=== PATIENT | male | born 1985 | race American Indian/Alaskan Native ===

== ENCOUNTER 2016-09-26 17:26 | Emergency (ER) | payer SELFPAY | END 2016-09-26 18:30 | disposition left against medical advice (07) | LOC: ED 17:26 | DX: Z53.21 Procedure and treatment not carried out due to patient leaving prior to being seen by health care provider (principal) ==

== ENCOUNTER 2016-10-28 09:22 | Emergency (ER) | payer OTHER ==
[2016-10-28 10:11] VITALS: BP 112/62
--- NOTE | 2016-10-28 11:37 | Emergency Department Report ---
- General Chief complaint: Skin Rash Stated complaint: RASH/POSS INSECT BITE SPREADING Time Seen by Provider: 10/28/16 11:07 Source: patient Mode of arrival: Ambulatory Limitations: No Limitations - History of Present Illness Initial comments: This is a 31-year-old male nontoxic, well nourished in appearance, no acute signs of distress the patient's ED complaining of welts and skin rash 2 weeks. Associated symptoms include itching, tender to touch, redness, and warmth to touch. Extremities affected is his right upper extremity and chest area. Patient denies any contact of poison gonzalo or the other. Patient denies any pus, drainage, induration, fever, chills, headache, nausea, vomiting, chest pain or short of breath. Denies any allergies or past medical history. MD complaint: rash -: Gradual, week(s) (3) Tetanus Up to Date: yes Location: generalized, chest, RUE Severity: mild Severity scale (0 -10): 6 Quality: aching, other (itching) Consistency: constant Improves with: none Worsens with: none Context: none Associated symptoms: denies other symptoms Treatments Prior to Arrival: none - Related Data Previous Rx's Medication Instructions Recorded Last Taken Type Hyoscyamine Sulfate [Hyoscyamine 0.125 mg PO Q4H PRN #10 tablet 04/22/14 Unknown Rx 0.125 MG] Acyclovir [Zovirax Tab] 400 mg PO Q8H #21 tab 05/31/14 Unknown Rx Meclizine [Antivert] 25 mg PO TID PRN #14 tablet 05/31/14 Unknown Rx Sulfamethoxazole/Trimethoprim 1 each PO BID #14 tablet 10/28/16 Unknown Rx [Bactrim DS TAB] predniSONE [Deltasone] 20 mg PO BID #10 tab 10/28/16 Unknown Rx Allergies Allergy/AdvReac Type Severity Reaction Status Date / Time No Known Allergies Allergy Unverified 11/20/13 20:17 Abscess Boil HPI - HPI Chief Complaint: Skin Rash Stated Complaint: RASH/POSS INSECT BITE SPREADING Time Seen by Provider: 10/28/16 11:07 Home Medications: Previous Rx's Medication Instructions Recorded Last Taken Type Hyoscyamine Sulfate [Hyoscyamine 0.125 mg PO Q4H PRN #10 tablet 04/22/14 Unknown Rx 0.125 MG] Acyclovir [Zovirax Tab] 400 mg PO Q8H #21 tab 05/31/14 Unknown Rx Meclizine [Antivert] 25 mg PO TID PRN #14 tablet 05/31/14 Unknown Rx Sulfamethoxazole/Trimethoprim 1 each PO BID #14 tablet 10/28/16 Unknown Rx [Bactrim DS TAB] predniSONE [Deltasone] 20 mg PO BID #10 tab 10/28/16 Unknown Rx Allergies/Adverse Reactions: Allergies Allergy/AdvReac Type Severity Reaction Status Date / Time No Known Allergies Allergy Unverified 11/20/13 20:17 ED Review of Systems ROS: Stated complaint: RASH/POSS INSECT BITE SPREADING Other details as noted in HPI Constitutional: denies: chills, fever Eyes: denies: eye pain, eye discharge, vision change ENT: denies: ear pain, throat pain Respiratory: denies: cough, shortness of breath, wheezing Cardiovascular: denies: chest pain, palpitations Endocrine: no symptoms reported Gastrointestinal: denies: abdominal pain, nausea, diarrhea Genitourinary: denies: urgency, dysuria Musculoskeletal: denies: back pain, joint swelling, arthralgia Skin: denies: rash, lesions Neurological: denies: headache, weakness, paresthesias Psychiatric: denies: anxiety, depression Hematological/Lymphatic: denies: easy bleeding, easy bruising ED Past Medical Hx - Past Medical History Previous Medical History?: Yes Hx Psychiatric Treatment: Yes (anger issues) - Surgical History Past Surgical History?: No - Social History Smoking Status: Current Every Day Smoker Substance Use Type: Alcohol, Marijuana - Medications Home Medications: Home Medications Medication Instructions Recorded Confirmed Last Taken Type Hyoscyamine Sulfate [Hyoscyamine 0.125 mg PO Q4H PRN #10 tablet 04/22/14 Unknown Rx 0.125 MG] Acyclovir [Zovirax Tab] 400 mg PO Q8H #21 tab 05/31/14 Unknown Rx Meclizine [Antivert] 25 mg PO TID PRN #14 tablet 05/31/14 Unknown Rx Sulfamethoxazole/Trimethoprim 1 each PO BID #14 tablet 10/28/16 Unknown Rx [Bactrim DS TAB] predniSONE [Deltasone] 20 mg PO BID #10 tab 10/28/16 Unknown Rx ED Physical Exam - General Limitations: No Limitations General appearance: alert, in no apparent distress - Head Head exam: Present: atraumatic, normocephalic, normal inspection - Eye Eye exam: Present: normal appearance, PERRL, EOMI. Absent: scleral icterus, conjunctival injection, nystagmus, periorbital swelling, periorbital tenderness Pupils: Present: normal accommodation - ENT ENT exam: Present: normal exam, normal orophraynx, mucous membranes moist, TM's normal bilaterally, normal external ear exam - Neck Neck exam: Present: normal inspection, full ROM. Absent: tenderness, meningismus, lymphadenopathy, thyromegaly - Respiratory Respiratory exam: Present: normal lung sounds bilaterally. Absent: respiratory distress, wheezes, rales, rhonchi, stridor, chest wall tenderness, accessory muscle use, decreased breath sounds, prolonged expiratory - Cardiovascular Cardiovascular Exam: Present: regular rate, normal rhythm, normal heart sounds. Absent: bradycardia, tachycardia, irregular rhythm, systolic murmur, diastolic murmur, rubs, gallop - GI/Abdominal GI/Abdominal exam: Present: soft, normal bowel sounds. Absent: distended, tenderness, guarding, rebound, rigid, diminished bowel sounds - Rectal Rectal exam: Present: deferred - Extremities Exam Extremities exam: Present: normal inspection, full ROM, normal capillary refill. Absent: tenderness, pedal edema, joint swelling, calf tenderness - Back Exam Back exam: Present: normal inspection, full ROM. Absent: tenderness, CVA tenderness (R), CVA tenderness (L), muscle spasm, paraspinal tenderness, vertebral tenderness, rash noted - Neurological Exam Neurological exam: Present: alert, oriented X3, CN II-XII intact, normal gait, reflexes normal - Psychiatric Psychiatric exam: Present: normal affect, normal mood - Skin Skin exam: Present: warm, dry, intact, normal color, rash, erythema, other (2 cm circular erythema noted to her right upper extremity and chest. Warm to touch. Tender to touch. No induration or fluctuance was noted. No posterior drainage.). Absent: cyanosis, diaphoretic, urticaria, vesicles, petechiae, pallor, abrasion, ecchymosis ED Course Vital Signs 10/28/16 10:07 Temperature 98.4 F Pulse Rate 66 Respiratory 18 Rate Blood Pressure 112/62 O2 Sat by Pulse 99 Oximetry - Reevaluation(s) Reevaluation #1: 10/28/16 11:40 Patient is speaking in full sentences with no signs of distress noted. Critical care attestation.: If time is entered above; I have spent that time in minutes in the direct care of this critically ill patient, excluding procedure time. ED Disposition Clinical Impression: Cellulitis Qualifiers: Site of cellulitis: extremity Site of cellulitis of extremity: upper extremity Laterality: right Qualified Code(s): L03.113 - Cellulitis of right upper limb Disposition: - TO HOME OR SELFCARE Is pt being admited?: No Does the pt Need Aspirin: No Condition: Stable Instructions: Cellulitis (ED), Sulfamethoxazole/Trimethoprim (By mouth), Prednisone (By mouth) Additional Instructions: Follow-up with your primary care doctor to 3-5 days or symptoms such as pus, drainage, or worsening symptoms return to the emergency room as soon as possible. Take full course of antibiotics that was prescribed. Prescriptions: predniSONE [Deltasone] 20 mg PO BID #10 tab Sulfamethoxazole/Trimethoprim [Bactrim DS TAB] 1 each PO BID #14 tablet Referrals: PRIMARY MD RAMIN [Primary Care Provider] - 3-5 Days GERARDO PATE MD [Staff Physician] - 3-5 Days [facility] [Outside] - 3-5 Days [facility] [Outside] - 3-5 Days Forms: Work/School Release Form(ED)
== END 2016-10-28 12:03 | disposition home or self-care (01) ==
LOC: ED 09:22
DX: L03.113 Cellulitis of right upper limb (principal); F17.200 Nicotine dependence, unspecified, uncomplicated; F12.90 Cannabis use, unspecified, uncomplicated
CPT/HCPCS: 99282

== ENCOUNTER 2017-04-06 23:39 | Emergency (ER) | payer SELFPAY | END 2017-04-07 01:57 | disposition left against medical advice (07) | LOC: ED 23:39 | DX: R19.5 Other fecal abnormalities (principal); Z53.21 Procedure and treatment not carried out due to patient leaving prior to being seen by health care provider ==

== ENCOUNTER 2017-09-06 20:03 | Emergency (ER) | payer SELFPAY ==
[2017-09-06 20:28] VITALS: BP 120/63
[2017-09-06] MEDS ORDERED: BENADRYL PO ONE (21:08)
[2017-09-06] MEDS ORDERED: BACTRIM DS PO ONE (21:08)
[2017-09-06] MEDS ORDERED: DELTASONE PO ONE (21:08)
[2017-09-06] MEDS ORDERED: REGLAN PO ONE (21:09)
--- NOTE | 2017-09-06 21:32 | Emergency Department Report ---
ED Rash HPI - HPI Duration: 1 week Location: Upper Extremities, Lower Extremities, Other (buttock ) Rash Symptoms: Yes Itching, No Facial Swelling, No Tongue/Oral Swelling, No Breathing Difficulties, No Choking Sensation, No Wheezing/Dyspnea, No Peeling, No Blistering, No Fever, No Lightheaded, No Malaise, No Myalgias Severity: moderate Other History: skin dry flaky raised smooth no weeping no fever urticaria <WILL GREGORIO - Last Filed: 09/06/17 21:21> <SANIYA GILLIS - Last Filed: 09/07/17 12:26> - HPI Chief Complaint: Skin Rash Stated Complaint: HIVES Time Seen by Provider: 09/06/17 21:05 ED Review of Systems ROS: Stated complaint: HIVES Other details as noted in HPI Constitutional: denies: chills, fever Eyes: denies: eye pain, eye discharge, vision change ENT: denies: ear pain, throat pain Respiratory: denies: cough, shortness of breath, wheezing Cardiovascular: denies: chest pain, palpitations Endocrine: no symptoms reported Gastrointestinal: denies: abdominal pain, nausea, diarrhea Genitourinary: denies: urgency, dysuria Musculoskeletal: denies: back pain, joint swelling, arthralgia Skin: rash, pruritus, other (recurring contact dermatitis to insect bites skin toned raised smooth itching hives no drainage no fever over pas month ) Neurological: denies: headache, weakness, paresthesias Psychiatric: denies: anxiety, depression Hematological/Lymphatic: denies: easy bleeding, easy bruising <WILL GREGORIO - Last Filed: 09/06/17 21:21> ROS: Stated complaint: HIVES Other details as noted in HPI <SANIYA GILLIS - Last Filed: 09/07/17 12:26> ED Past Medical Hx - Past Medical History Hx Psychiatric Treatment: Yes (anger issues) - Surgical History Past Surgical History?: No - Social History Smoking Status: Current Some Day Smoker Substance Use Type: Alcohol <WILL GREGORIO - Last Filed: 09/06/17 21:21> <SANIYA GILLIS - Last Filed: 09/07/17 12:26> - Medications Home Medications: Home Medications Medication Instructions Recorded Confirmed Last Taken Type Hyoscyamine Sulfate [Hyoscyamine 0.125 mg PO Q4H PRN #10 tablet 04/22/14 Unknown Rx 0.125 MG] Acyclovir [Zovirax Tab] 400 mg PO Q8H #21 tab 05/31/14 Unknown Rx Meclizine [Antivert] 25 mg PO TID PRN #14 tablet 05/31/14 Unknown Rx Sulfamethoxazole/Trimethoprim 1 each PO BID #14 tablet 10/28/16 Unknown Rx [Bactrim DS TAB] predniSONE [Deltasone] 20 mg PO BID #10 tab 10/28/16 Unknown Rx Metoclopramide [Reglan] 10 mg PO TID #30 tab 09/06/17 Unknown Rx Sulfamethoxazole/Trimethoprim 1 each PO BID #14 tablet 09/06/17 Unknown Rx [Bactrim DS TAB] Triamcinolone 0.1% [Kenalog 0.1% 1 applic TP BID 14 Days #1 tube 09/06/17 Unknown Rx OINT] diphenhydrAMINE [Benadryl CAP] 25 mg PO Q6HR PRN #30 capsule 09/06/17 Unknown Rx predniSONE [Deltasone] 40 mg PO QDAY #10 tab 09/06/17 Unknown Rx Rash Exam - Exam General: Vital signs noted. No distress. Alert and acting appropriately. HEENT: No Periorbital Edema, No Conjuctival Injection, No Chemosis, No Perioral Edema, No Tongue Edema, No Uvular Edema, No Compromised Airway, No Drooling Lungs: Yes Good Air Exchange, No Wheezes, No Ronchi, No Stridor, No Cough, No Labored Respirations, No Retractions, No Use of Accessory Muscles, No Other Abnormal Lung Sounds Heart: Yes Regular, No Murmur Skin: Yes Urticarial Rash, Yes Other (hives bilat upper and lower extrems and buttocks , no weeping mild erythema no open lesions no fever ), No Maculopapular Rash, No Morbilliform rash, No Bulla(e), No Excoriations, No Weeping, No Tenderness, No Erythema, No Edema, No Encrustations <WILL GREGORIO - Last Filed: 09/06/17 21:21> - Exam General: Vital signs noted. No distress. Alert and acting appropriately. <SANIYA GILLIS - Last Filed: 09/07/17 12:26> ED Course Vital Signs 09/06/17 20:10 Temperature 98.9 F Pulse Rate 81 Respiratory 18 Rate Blood Pressure 120/63 O2 Sat by Pulse 96 Oximetry <WILL GREGORIO - Last Filed: 09/06/17 21:21> Vital Signs 09/06/17 20:10 Temperature 98.9 F Pulse Rate 81 Respiratory 18 Rate Blood Pressure 120/63 O2 Sat by Pulse 96 Oximetry <SANIYA GILLIS - Last Filed: 09/07/17 12:26> ED Medical Decision Making - Medical Decision Making This is a recurring allergic /atopic/ contact dermatitis to insect bites previously treated with Bactrim, prednisone, Benadryl , , patient states he keeps getting recontacted by spiders in home has not followed up with dermatology to this point. Rrash to bilateral upper and lower extremities small hives skin toned no weeping no broken skin no fever no respiratory distress no wheezing, no sob, no n/v , mild erythema plan prednisone Benadryl Reglan Bactrim, triamcinolone ointment, follow up with [facility] in 2-3 days , in 2-3 days, return to ed of symptoms worsen, patient will be DC'd to home in stable condition at this time, patient verbalizes understanding and agreement with discharge plan. pt is currently a/o x 3 ambulatory gait steady with nad at this time. <WILL GREGORIO - Last Filed: 09/06/17 21:21> - Medical Decision Making I was available for consultations at all times during the patient stay. I did not personally see and was not involved in the care of the patient. <SANIYA GILLIS - Last Filed: 09/07/17 12:26> Critical care attestation.: If time is entered above; I have spent that time in minutes in the direct care of this critically ill patient, excluding procedure time. <WILL GREGORIO - Last Filed: 09/06/17 21:21> Critical care attestation.: If time is entered above; I have spent that time in minutes in the direct care of this critically ill patient, excluding procedure time. <SANIYA GILLIS - Last Filed: 09/07/17 12:26> ED Disposition Is pt being admited?: No Does the pt Need Aspirin: No Time of Disposition: 21:37 <WILL GREGORIO - Last Filed: 09/06/17 21:21> <SANIYA GILLIS - Last Filed: 09/07/17 12:26> Disposition: DC-01 TO HOME OR SELFCARE Condition: Good Instructions: Insect Bite or Sting (ED), Allergies (ED) Prescriptions: diphenhydrAMINE [Benadryl CAP] 25 mg PO Q6HR PRN #30 capsule PRN Reason: itching Metoclopramide [Reglan] 10 mg PO TID #30 tab predniSONE [Deltasone] 40 mg PO QDAY #10 tab Sulfamethoxazole/Trimethoprim [Bactrim DS TAB] 1 each PO BID #14 tablet Triamcinolone 0.1% [Kenalog 0.1% OINT] 1 applic TP BID 14 Days #1 tube Referrals: [facility] [Outside] - 3-5 Days Forms: Work/School Release Form(ED)
== END 2017-09-06 21:40 | disposition home or self-care (01) ==
LOC: ED 20:03
DX: L23.9 Allergic contact dermatitis, unspecified cause (principal); F17.200 Nicotine dependence, unspecified, uncomplicated; Z79.899 Other long term (current) drug therapy
CPT/HCPCS: 99282; J7512

== ENCOUNTER 2017-09-10 22:58 | Emergency (ER) | payer SELFPAY ==
[2017-09-10 23:24] VITALS: BP 112/65
[2017-09-11] MEDS ORDERED: BENADRYL IV ONE (02:45)
[2017-09-11] MEDS ORDERED: DECADRON IV ONE (02:45)
[2017-09-11] MEDS ORDERED: PEPCID IV ONE (02:45)
--- NOTE | 2017-09-11 02:58 | Emergency Department Report ---
ED Allergic Reaction HPI - General Chief complaint: Sore Throat Stated complaint: HIVES IN FEET AND THROAT Time Seen by Provider: 09/11/17 02:44 Source: patient Mode of arrival: Ambulatory Limitations: No Limitations - History of Present Illness Initial Comments: 32-year-old -[place] male reports a spider bite today and started getting hives when the spider bit him patient reports seeing the spider. Hives on the back and feet throat sore. MD Complaint: allergic reaction, hives Symptoms: rash, itching Treatment Prior to Arrival: benadryl - Related Data Previous Rx's Medication Instructions Recorded Last Taken Type Hyoscyamine Sulfate [Hyoscyamine 0.125 mg PO Q4H PRN #10 tablet 04/22/14 Unknown Rx 0.125 MG] Acyclovir [Zovirax Tab] 400 mg PO Q8H #21 tab 05/31/14 Unknown Rx Sulfamethoxazole/Trimethoprim 1 each PO BID #14 tablet 10/28/16 Unknown Rx [Bactrim DS TAB] predniSONE [Deltasone] 20 mg PO BID #10 tab 10/28/16 Unknown Rx Metoclopramide [Reglan] 10 mg PO TID #30 tab 09/06/17 Unknown Rx Sulfamethoxazole/Trimethoprim 1 each PO BID #14 tablet 09/06/17 Unknown Rx [Bactrim DS TAB] diphenhydrAMINE [Benadryl CAP] 25 mg PO Q6HR PRN #30 capsule 09/06/17 Unknown Rx predniSONE [Deltasone] 40 mg PO QDAY #10 tab 09/06/17 Unknown Rx Meclizine [Antivert] 25 mg PO TID PRN #14 tablet 09/11/17 Unknown Rx Triamcinolone 0.1% [Kenalog 0.1% 1 applic TP BID 14 Days #1 tube 09/11/17 Unknown Rx OINT] Allergies Allergy/AdvReac Type Severity Reaction Status Date / Time No Known Allergies Allergy Unverified 11/20/13 20:17 ED Review of Systems ROS: Stated complaint: HIVES IN FEET AND THROAT Other details as noted in HPI Skin: rash, lesions ED Past Medical Hx - Past Medical History Previous Medical History?: Yes Hx Psychiatric Treatment: Yes (anger issues) - Surgical History Past Surgical History?: No - Social History Smoking Status: Never Smoker Substance Use Type: None - Medications Home Medications: Home Medications Medication Instructions Recorded Confirmed Last Taken Type Hyoscyamine Sulfate [Hyoscyamine 0.125 mg PO Q4H PRN #10 tablet 04/22/14 Unknown Rx 0.125 MG] Acyclovir [Zovirax Tab] 400 mg PO Q8H #21 tab 05/31/14 Unknown Rx Sulfamethoxazole/Trimethoprim 1 each PO BID #14 tablet 10/28/16 Unknown Rx [Bactrim DS TAB] predniSONE [Deltasone] 20 mg PO BID #10 tab 10/28/16 Unknown Rx Metoclopramide [Reglan] 10 mg PO TID #30 tab 09/06/17 Unknown Rx Sulfamethoxazole/Trimethoprim 1 each PO BID #14 tablet 09/06/17 Unknown Rx [Bactrim DS TAB] diphenhydrAMINE [Benadryl CAP] 25 mg PO Q6HR PRN #30 capsule 09/06/17 Unknown Rx predniSONE [Deltasone] 40 mg PO QDAY #10 tab 09/06/17 Unknown Rx Meclizine [Antivert] 25 mg PO TID PRN #14 tablet 09/11/17 Unknown Rx Triamcinolone 0.1% [Kenalog 0.1% 1 applic TP BID 14 Days #1 tube 09/11/17 Unknown Rx OINT] ED Physical Exam - General Limitations: No Limitations General appearance: alert, in no apparent distress - Eye Eye exam: Present: normal appearance - ENT ENT exam: Present: mucous membranes moist - Respiratory Respiratory exam: Present: normal lung sounds bilaterally. Absent: respiratory distress - Cardiovascular Cardiovascular Exam: Present: regular rate, normal rhythm. Absent: systolic murmur, diastolic murmur, rubs, gallop - Back Exam Back exam: Present: rash noted (urticaria) - Neurological Exam Neurological exam: Present: alert, oriented X3 - Psychiatric Psychiatric exam: Present: normal affect, normal mood - Skin Skin exam: Present: urticaria - Expanded Skin Exam Expanded Distribution of rash: chest, back, RUE, LUE, RLE Description of rash: Present: urticarial ED Course Vital Signs 09/10/17 23:15 Temperature 97.6 F Pulse Rate 71 Respiratory 12 Rate Blood Pressure 112/65 O2 Sat by Pulse 97 Oximetry ED Medical Decision Making - Medical Decision Making Patient has been evaluated by this provider fast track. Patient was given IV Pepcid IV Benadryl IV dexamethasone. Discharge patient with meclizine and proximal 0.1% cream to apply to the urticaria is an rash. Discussed the patient follow-up with her primary care provider for possible allergy testing. Patient verbalizes understanding Critical care attestation.: If time is entered above; I have spent that time in minutes in the direct care of this critically ill patient, excluding procedure time. ED Disposition Clinical Impression: Spider bite allergy, current reaction Qualifiers: Encounter type: initial encounter Injury intent: accidental or unintentional Qualified Code(s): T63.301A - Toxic effect of unspecified spider venom, accidental (unintentional), initial encounter Disposition: DC-01 TO HOME OR SELFCARE Is pt being admited?: No Does the pt Need Aspirin: No Condition: Stable Instructions: Insect Bite or Sting (ED) Additional Instructions: Take medication as prescribed. Follow up with your primary care provider if symptoms persist or gets worse. Prescriptions: Meclizine [Antivert] 25 mg PO TID PRN #14 tablet PRN Reason: Vertigo Triamcinolone 0.1% [Kenalog 0.1% OINT] 1 applic TP BID 14 Days #1 tube Referrals: PRIMARY CARE, [Primary Care Provider] - 3-5 Days [facility] [Provider Group] - 3-5 Days Forms: Work/School Release Form(ED)
== END 2017-09-11 04:10 | disposition home or self-care (01) ==
LOC: ED 22:58
DX: T63.301A Toxic effect of unspecified spider venom, accidental (unintentional), initial encounter (principal); S91.359A Open bite, unspecified foot, initial encounter; S11.85XA Open bite of other specified part of neck, initial encounter; S21.259A Open bite of unspecified back wall of thorax without penetration into thoracic cavity, initial encounter; Y93.89 Activity, other specified; Y92.89 Other specified places as the place of occurrence of the external cause; Y99.8 Other external cause status
CPT/HCPCS: 87116; 87430; 96374; 96375; 99283; J1100; J1200

== ENCOUNTER 2017-10-01 00:13 | Emergency (ER) | payer SELFPAY ==
[2017-10-01 00:49] VITALS: BP 125/66
[2017-10-01] MEDS ORDERED: BENADRYL IV ONE (01:33)
[2017-10-01] MEDS ORDERED: PEPCID IV ONE (01:33)
[2017-10-01] MEDS ORDERED: NACL 0.9% 1000 ML 1,000 ML IV ONE (01:33)
[2017-10-01] MEDS ORDERED: DECADRON IV ONE (01:33)
--- NOTE | 2017-10-01 02:31 | Emergency Department Report ---
ED Allergic Reaction HPI - General Chief complaint: Allergic Reaction Stated complaint: HIVES Time Seen by Provider: 10/01/17 01:54 Source: patient Mode of arrival: Ambulatory Limitations: No Limitations - History of Present Illness Initial Comments: This is a 32-year-old male nontoxic, well nourished in appearance, no acute signs of distress presents to the ED with c/o of acute on chronic hives and itching from spider bites. Patient states she was in the in a house and has multiple spider bited to upper and lower extremities. Patient states it is itching and redness. Patient denies any drooling, hoarseness or facial swelling. Patient denies any trauma. She denies any fever, chills, nausea, vomiting, chest pain, shortness of breath, headache, stiff neck, numbness or tingling. Patient denies any allergies or PMH. MD Complaint: allergic reaction, hives -: Last night Exposure: insect bite Symptoms: rash, itching. denies: facial swelling, lip swelling, difficulty swallowing, difficulty breathing, orolingual swelling, hoarseness, syncopy, dizziness, nausea, vomiting, abdominal pain Severity: mild Treatment Prior to Arrival: none Previous Allergy History: prior ED visit(s) - Related Data Previous Rx's Medication Instructions Recorded Last Taken Type Hyoscyamine Sulfate [Hyoscyamine 0.125 mg PO Q4H PRN #10 tablet 04/22/14 Unknown Rx 0.125 MG] Acyclovir [Zovirax Tab] 400 mg PO Q8H #21 tab 05/31/14 Unknown Rx Sulfamethoxazole/Trimethoprim 1 each PO BID #14 tablet 10/28/16 Unknown Rx [Bactrim DS TAB] predniSONE [Deltasone] 20 mg PO BID #10 tab 10/28/16 Unknown Rx Metoclopramide [Reglan] 10 mg PO TID #30 tab 09/06/17 Unknown Rx Sulfamethoxazole/Trimethoprim 1 each PO BID #14 tablet 09/06/17 Unknown Rx [Bactrim DS TAB] diphenhydrAMINE [Benadryl CAP] 25 mg PO Q6HR PRN #30 capsule 09/06/17 Unknown Rx predniSONE [Deltasone] 40 mg PO QDAY #10 tab 09/06/17 Unknown Rx Meclizine [Antivert] 25 mg PO TID PRN #14 tablet 09/11/17 Unknown Rx Triamcinolone 0.1% [Kenalog 0.1% 1 applic TP BID 14 Days #1 tube 09/11/17 Unknown Rx OINT] Prednisone [predniSONE 10 mg 10 mg PO .TAPER #1 tab.ds.pk 10/01/17 Unknown Rx (6-Day Pack, 21 Tabs)] diphenhydrAMINE [Benadryl CAP] 25 mg PO Q6HR PRN #20 capsule 10/01/17 Unknown Rx Allergies Allergy/AdvReac Type Severity Reaction Status Date / Time No Known Allergies Allergy Verified 10/01/17 01:27 ED Review of Systems ROS: Stated complaint: HIVES Other details as noted in HPI Constitutional: denies: chills, fever Eyes: denies: eye pain, eye discharge, vision change ENT: denies: ear pain, throat pain Respiratory: denies: cough, shortness of breath, wheezing Cardiovascular: denies: chest pain, palpitations Endocrine: no symptoms reported Gastrointestinal: denies: abdominal pain, nausea, diarrhea Genitourinary: denies: urgency, dysuria Musculoskeletal: denies: back pain, joint swelling, arthralgia Skin: rash. denies: lesions Neurological: denies: headache, weakness, paresthesias Psychiatric: denies: anxiety, depression Hematological/Lymphatic: denies: easy bleeding, easy bruising ED Past Medical Hx - Past Medical History Previous Medical History?: No Hx Psychiatric Treatment: Yes (anger issues) - Surgical History Past Surgical History?: No - Social History Smoking Status: Current Every Day Smoker Substance Use Type: Alcohol, Marijuana - Medications Home Medications: Home Medications Medication Instructions Recorded Confirmed Last Taken Type Hyoscyamine Sulfate [Hyoscyamine 0.125 mg PO Q4H PRN #10 tablet 04/22/14 Unknown Rx 0.125 MG] Acyclovir [Zovirax Tab] 400 mg PO Q8H #21 tab 05/31/14 Unknown Rx Sulfamethoxazole/Trimethoprim 1 each PO BID #14 tablet 10/28/16 Unknown Rx [Bactrim DS TAB] predniSONE [Deltasone] 20 mg PO BID #10 tab 10/28/16 Unknown Rx Metoclopramide [Reglan] 10 mg PO TID #30 tab 09/06/17 Unknown Rx Sulfamethoxazole/Trimethoprim 1 each PO BID #14 tablet 09/06/17 Unknown Rx [Bactrim DS TAB] diphenhydrAMINE [Benadryl CAP] 25 mg PO Q6HR PRN #30 capsule 09/06/17 Unknown Rx predniSONE [Deltasone] 40 mg PO QDAY #10 tab 09/06/17 Unknown Rx Meclizine [Antivert] 25 mg PO TID PRN #14 tablet 09/11/17 Unknown Rx Triamcinolone 0.1% [Kenalog 0.1% 1 applic TP BID 14 Days #1 tube 09/11/17 Unknown Rx OINT] Prednisone [predniSONE 10 mg 10 mg PO .TAPER #1 tab.ds.pk 10/01/17 Unknown Rx (6-Day Pack, 21 Tabs)] diphenhydrAMINE [Benadryl CAP] 25 mg PO Q6HR PRN #20 capsule 10/01/17 Unknown Rx ED Physical Exam - General Limitations: No Limitations General appearance: alert, in no apparent distress - Head Head exam: Present: atraumatic, normocephalic - Eye Eye exam: Present: normal appearance - ENT ENT exam: Present: normal exam, normal orophraynx, mucous membranes moist, TM's normal bilaterally, normal external ear exam, other (No angio edema present. Uvula midline without swelling. Tongue normal size and shape.) - Neck Neck exam: Present: normal inspection, full ROM. Absent: tenderness, meningismus, lymphadenopathy - Respiratory Respiratory exam: Present: normal lung sounds bilaterally. Absent: respiratory distress, wheezes, rales, rhonchi, stridor, chest wall tenderness, accessory muscle use, decreased breath sounds, prolonged expiratory - Cardiovascular Cardiovascular Exam: Present: regular rate, normal rhythm, normal heart sounds. Absent: bradycardia, tachycardia, irregular rhythm, systolic murmur, diastolic murmur, rubs, gallop - GI/Abdominal GI/Abdominal exam: Present: soft, normal bowel sounds - Rectal Rectal exam: Present: deferred - Extremities Exam Extremities exam: Present: normal inspection, full ROM, normal capillary refill - Back Exam Back exam: Present: normal inspection, full ROM - Neurological Exam Neurological exam: Present: alert, oriented X3, normal gait - Psychiatric Psychiatric exam: Present: normal affect, normal mood - Skin Skin exam: Present: warm, dry, intact, normal color, rash, urticaria ED Course Vital Signs 10/01/17 00:38 Temperature 98.2 F Pulse Rate 68 Respiratory 16 Rate Blood Pressure 125/66 O2 Sat by Pulse 99 Oximetry - Reevaluation(s) Reevaluation #1: 10/01/17 02:30 Patient is speaking in full sentences with no signs of distress noted. ED Medical Decision Making - Medical Decision Making This is a 32-year-old male that presents with allergic reaction. Patient is stable was examined by me. There is no facial swelling. No angioedema. There is no cellulitis. No hoarseness. Patient received 1 L normal saline, Benadryl , Decadron, and Pepcid in the ED IV. Patient was instructed not to operate any machinery after discharge due to possible drowsiness of Benadryl. Patient stated that a family member will drive patient home after discharge. Patient is discharged with prednisone and Benadryl. Patient was referred to Follow-up with a primary care doctor in 3-5 days or if symptoms worsen and continue return to emergency room as soon as possible. At time of discharge, the patient does not seem toxic or ill in appearance. No acute signs of distress noted. Patient agrees to discharge treatment plan of care. No further questions noted by the patient. Critical care attestation.: If time is entered above; I have spent that time in minutes in the direct care of this critically ill patient, excluding procedure time. ED Disposition Clinical Impression: Urticaria Allergic reaction Qualifiers: Encounter type: initial encounter Qualified Code(s): T78.40XA - Allergy, unspecified, initial encounter Disposition: DC-01 TO HOME OR SELFCARE Is pt being admited?: No Does the pt Need Aspirin: No Condition: Stable Instructions: Urticaria (ED), Diphenhydramine (By mouth) Additional Instructions: Follow-up with a primary care doctor in 3-5 days or if symptoms worsen and continue return to emergency room as soon as possible. Do not operate any machinery while taking Benadryl as this may cause drowsiness. Prescriptions: diphenhydrAMINE [Benadryl CAP] 25 mg PO Q6HR PRN #20 capsule PRN Reason: Itching Prednisone [predniSONE 10 mg (6-Day Pack, 21 Tabs)] 10 mg PO .TAPER #1 tab.ds.pk Referrals: PRIMARY CARE, [Primary Care Provider] - 3-5 Days BALTA OLIVAREZ MD [Staff Physician] - 3-5 Days [facility] [Outside] - 3-5 Days [facility] [Outside] - 3-5 Days Forms: Work/School Release Form(ED)
== END 2017-10-01 04:40 | disposition home or self-care (01) ==
LOC: ED 00:13
DX: T78.40XA Allergy, unspecified, initial encounter (principal); L50.9 Urticaria, unspecified; L29.9 Pruritus, unspecified; F17.200 Nicotine dependence, unspecified, uncomplicated; F12.10 Cannabis abuse, uncomplicated
CPT/HCPCS: 96374; 96375; 99282; J1100; J1200; J7030; 96361

== ENCOUNTER 2019-02-22 18:37 | Emergency (ER) | payer SELFPAY ==
[2019-02-22 21:07] VITALS: BP 132/71
--- NOTE | 2019-02-22 21:11 | Event Note ---
ED Screening Note Date of service: 02/22/19 Time: 21:08 ED Screening Note: 33 yo male c/o coming in contact with Trichomonas. Denies any other medical complaints. Began to discuss STD treatment policy for this ER pt then got up and walked out prior to exam and without getting any outside referral. This initial assessment/diagnostic orders/clinical plan/treatment(s) is/are subject to change based on patients health status, clinical progression and re- assessment by fellow clinical providers in the ED. Further treatment and workup at subsequent clinical providers discretion. Patient/guardian urged not to elope from the ED as their condition may be serious if not clinically assessed and managed. Initial orders include:
== END 2019-02-22 21:08 | disposition left against medical advice (07) ==
LOC: ED 18:37
DX: Z20.2 Contact with and (suspected) exposure to infections with a predominantly sexual mode of transmission (principal); Z53.21 Procedure and treatment not carried out due to patient leaving prior to being seen by health care provider